=== PATIENT | male | born 1945 ===

== ENCOUNTER 2024-10-04 17:50 | Outpatient (REF) | payer SELFPAY ==
[2024-10-05 01:03] LABS: Appearance Urine Clear; Color Urine Dark Yellow; Glucose Urine UA Negative (Negative); Leukocyte Esterase Urine Trace (Negative); Nitrite Urine Negative (Negative); PH 7.5 (5.0-9.0); Specific Gravity - Urine 1.025 (1.005-1.025); UMIC TRIGGER UACC YES; Urine Blood Negative (Negative); Urine Ketones Trace mg/dL (Negative); Urine Protein Trace mg/dL (Neg-Trace)
[2024-10-05 01:14] LABS: Bacteria Urine None Seen (None Seen); Squamous Epithelial Cell Urine 0-2 /HPF (0-2); WBC Urine 0-5 /HPF (0-5)
== END 2024-10-04 17:51 | disposition home or self-care (01) ==
LOC: HO.WMHL 17:50
PROVIDERS: Visit Provider Nurse Practitioner
DX: F03.918 Unspecified dementia, unspecified severity, with other behavioral disturbance (principal)
CPT/HCPCS: 81001; 81003; 87086